=== PATIENT | female | born 1955 | race Caucasian/White ===

== ENCOUNTER → 2017-03-03 | Outpatient (CLI) | payer OTHER ==
[~2017-03-03] MED LIST: IBUP-103 PO
== END | disposition home or self-care (01) ==
LOC: C.PAPS 08:53
PROVIDERS: ATTEND Physician Assistant Medical
DX: Z12.4 Encounter for screening for malignant neoplasm of cervix (principal)

== ENCOUNTER 2022-01-11 07:43 | Observation (INO) ==
--- NOTE | 2022-01-07 10:07 | Anesthesiology Consultation ---
Date of Service January 07, 2022 Assessment & Plan (1) Encounter for pre-operative examination: Chart Review Chart Review: Acceptable Risk for Surgery (pending preop Covid testing results ) and Patient NOT seen in Pre Admission Testing Per nursing assessment 01/07/2022, patient denies any recent travel. No known COVID infection in the past 90 days. Patient is fully vaccinated for COVID. No known Covid positive exposures or Covid related symptoms. Preop Covid testing scheduled 01/08/22= will await results History Surgery Operation Date: 01/11/22 08:35 Proposed Procedures p Bilateral Simple Mastectomies and Right Axillary [place] Lymph Node Biopsy - Bob العراقي MD Height/Weight Height: 5 ft 4 in Weight: 66.224 kg Allergies Allergy/AdvReac Type Severity Reaction Status Date / Time bupropion [From Wellbutrin] Allergy Unknown Unknown Verified 01/07/22 09: iodine Allergy Unknown Unknown Verified 01/07/22 09:22 Medications Home Medications Medication Instructions Recorded Confirmed Last Taken calcium citrate 200 mg 1 tab PO QAM 03/20/19 01/07/22 Unknown calcium-vitamin D3 6.25 mcg (250 unit) tablet cholecalciferol (vitamin D3) 25 1,000 units PO QAM cap 03/20/19 01/07/22 Unknown mcg (1,000 unit) capsule diphenhydramine 25 1 tab PO HS tab 06/05/19 01/07/22 Unknown mg-acetaminophen 500 mg tablet fluticasone propionate 50 2 sprays INTRANASAL DAILY PRN gm 06/05/19 01/07/22 Unknown mcg/actuation nasal spray,suspension meloxicam 15 mg tablet 15 mg PO DAILY PRN 08/28/20 01/07/22 Unknown triamcinolone acetonide 0.1 % 1 applic TOPICAL QID PRN 08/28/20 01/07/22 Unknown topical cream loratadine 10 mg tablet (Claritin) 10 mg PO DAILY PRN 06/23/21 01/07/22 Unknown nicotine 21 mg/24 hr daily 1 patch TRANSDERMAL DAILY #14 ea 11/19/21 01/07/22 Unknown transdermal patch rosuvastatin 10 mg tablet 10 mg PO HS 01/07/22 01/07/22 Unknown Past Medical History Medical History (Updated 01/07/22 @ 10:07 by Janice Larose PA-C) Acquired deviated nasal septum Chronic maxillary sinusitis Has not had sinus infection for the last 5 yrs Hyperlipidemia Invasive lobular carcinoma of breast in female Right breast- multifocal, lobular carcinoma; left breast- abnormal focus- atypical ductal hyperplasia Plan surgical intervention (reason for procedure) Migraine headache Mitral valve prolapse syndrome No meds, followed by PCP No murmur noted on physical exam per heme/onc note 12/08/21 Past Family History Family History Father Hypertension Coronary heart disease Prostate cancer Myocardial infarction Stroke Brother Hypertension Denies family history of Ovarian cancer Diabetes Breast cancer Lung cancer Colorectal cancer Past Surgical History Surgical History H/O colonoscopy 01/2013 Hx of tubal ligation Social History Smoking Status: Current every day smoker tobacco type: cigarettes Smoking cigarettes per day: 3 cig a day Do You Dip or Chew Tobacco: No Smoking End Date: process of quitting and wears patch Hx Alcohol Use: Yes Alcohol type: hard liquor alcohol intake frequency: holidays/special occasions only Hx Substance Use: No substance use type: does not use Testing Laboratory Results 12/08/21= WBC: 6.57 H/H: 14.5/42.1 PLATELETS: 186 SODIUM: 139 POTASSIUM: 4.4 CHLORIDE: 101 CO2: 26 BUN: 15 CREATININE: 0.7 GLUCOSE: 101 Electrocardiogram Date: 06/23/21 Sinus rhythm at 73bpm. Possible left atrial enlargement (Faxed quality of EKG poor- will leave to anesthesiologist discretion DOS if repeat EKG needed)
[~2022-01-11 07:43] MED LIST changes: -IBUP-103 PO; +LR 15ML/HR IV SCH; +ceFAZolin 2000MG 2,000 MG/15 ML SYR IV SCH
[2022-01-11] MEDS ORDERED: MIDAZOLAM HCL 1 MG/ML 2ML VIAL ONE (08:01)
[2022-01-11] MEDS ORDERED: fentaNYL citrate 100 MCG/2 ML VIAL ONE ×4 (08:02→11:48)
[2022-01-11] MEDS ORDERED: ONDANSETRON INJ 2 MG/ML 2 ML VIAL ONE ×2 (08:02→12:50)
[2022-01-11] MEDS ORDERED: DEXAMETHASONE SOD INJ 4 MG/ML VIAL ONE ×2 (08:02→10:26)
[2022-01-11] MEDS ORDERED: PROPOFOL IV EMULSION 10 MG/ML 20 ML VIAL IV ONE (08:02)
[2022-01-11] MEDS ORDERED: LIDOCAINE 2% 2 ML VIAL/AMP(20MG/ML) INFIL ONE (08:03)
--- NOTE | 2022-01-11 08:47 | History & Physical Report ---
Date of Service January 11, 2022 Assessment & Plan (1) Invasive lobular carcinoma of breast in female: Plan: 66-year-old woman with right breast infiltrating lobular carcinoma and left breast atypical ductal hyperplasia. With a long discussion. She would like to proceed with bilateral mastectomy with right sentinel lymph node biopsy. All questions were answered. We will schedule at the earliest convenience. History of Present Illness Primary Care Provider: Axel Morales, 66-year-old woman with right-sided infiltrating lobular carcinoma of 2 sites as well as left breast atypical ductal hyperplasia. She is here for bilateral mastectomy with right sentinel lymph node biopsy. Allergies Allergy/AdvReac Type Severity Reaction Status Date / Time bupropion [From Wellbutrin] Allergy Unknown Unknown Verified 01/07/22 09:22 iodine Allergy Unknown Unknown Verified 01/07/22: Home Medications Medication Instructions Recorded Confirmed Type calcium citrate 200 mg 1 tab PO QAM 03/20/19 01/07/22 History calcium-vitamin D3 6.25 mcg (250 unit) tablet cholecalciferol (vitamin D3) 25 1,000 units PO QAM cap 03/20/19 01/07/22 History mcg (1,000 unit) capsule diphenhydramine 25 1 tab PO HS tab 06/05/19 01/07/22 History mg-acetaminophen 500 mg tablet fluticasone propionate 50 2 sprays INTRANASAL DAILY PRN gm 06/05/19 01/07/22 History mcg/actuation nasal spray,suspension meloxicam 15 mg tablet 15 mg PO DAILY PRN 08/28/20 01/07/22 History triamcinolone acetonide 0.1 % 1 applic TOPICAL QID PRN 08/28/20 01/07/22 History topical cream loratadine 10 mg tablet (Claritin) 10 mg PO DAILY PRN 06/23/21 01/07/22 History nicotine 21 mg/24 hr daily 1 patch TRANSDERMAL DAILY #14 ea 11/19/21 01/07/22 Rx transdermal patch rosuvastatin 10 mg tablet 10 mg PO HS 01/07/22 01/07/22 History Past Med/Surg History Medical History Acquired deviated nasal septum Chronic maxillary sinusitis Has not had sinus infection for the last 5 yrs Hyperlipidemia Invasive lobular carcinoma of breast in female Right breast- multifocal, lobular carcinoma; left breast- abnormal focus- atypical ductal hyperplasia Plan surgical intervention (reason for procedure) Migraine headache Mitral valve prolapse syndrome No meds, followed by PCP No murmur noted on physical exam per heme/onc note 12/08/21 Surgical History H/O colonoscopy 01/2013 Hx of tubal ligation Family History Father Hypertension Coronary heart disease Prostate cancer Myocardial infarction Stroke Brother Hypertension Denies family history of Ovarian cancer Diabetes Breast cancer Lung cancer Colorectal cancer Social History Smoking Status: Current every day smoker Cigarettes Per Day: 3 cig a day; Smoking End Date: process of quitting and wears patch; Second Hand Exposure: No; Do You Dip or Chew Tobacco: No; Tobacco Cessation Education Requested by Patient: No Hx Alcohol Use: Yes Alcohol type: hard liquor Alcohol Intake Frequency: 2-4 x/Month Hx Substance Use: No Preferred Language: Belgian Communication Ability: Effective Visual Impairment: Limited Hearing Ability: Normal Dental Hygiene Teacher Required: No Beliefs That Will Affect Care: None marital status: Current Living Situation: Spouse current occupational status: employed current occupation: Dispatcher How many Children do You have: 4 Other Information That Helps Us Care for You: No Feels Safe at Home: Yes Safety Concerns: Feels Safe At This Time Childhood Exposure to Second-Hand Smoke: Yes Dental Care, Regularly: Yes Physical Activity Frequency: 3-4 Times per Week Seatbelt Use: always Sunscreen Use: Yes Assistive Devices: Glasses Review of Systems Review of Systems: All systems reviewed & are unremarkable except as noted in HPI & below Physical Exam Constitutional: WD/WN, vitals as above Neck: trachea midline, no thyromegaly Respiratory: normal respiratory effort, lungs clear to auscultation Cardiovascular: RRR, no murmur, no edema Gastrointestinal (Abdomen): normal bowel sounds, soft, nontender, no hepatosplenomegaly Skin: no rashes, warm and dry Psychiatric: A+Ox3, euthymic affect
--- NOTE | 2022-01-11 09:17 | Nuclear Medicine Report ---
LYMPHOSCINTIGRAPHY CLINICAL HISTORY: Right breast cancer. PROCEDURE: Using standard sterile technique, 4 periareolar intradermal and one deep injection of 495 uCi of Lymphoseek was placed in the right breast. The patient tolerated the procedure well. There wer e no immediate complications. The patient was subsequently transported to the surgical suite. Imaging was performed at 15 minutes and 30 images. A right axillary node was marked for the surgeon. IMPRESSION: Injection of 495 uCi of Lymphoseek in the right breast with marking of a right axillary l ymph node. ACT 112: Negative or not required by law. Electronically signed by: Arslan Champagne M.D. 01/11/2022 9:15 AM
[2022-01-11] MEDS ORDERED: ISOSULFAN BLUE 10 MG/ML VIAL 5 ML ONE (09:27)
[2022-01-11] MEDS ORDERED: LIDOCAINE 1%/EPINEPHRINE 1:100,000 50 ML VIAL ONE (09:27)
[2022-01-11] MEDS ORDERED: ATROPINE SULFATE 0.1 MG/ML 10ML SYR IV PRN (09:33)
[2022-01-11] MEDS ORDERED: PROMETHAZINE HCL 6.25 MG in SODIUM CHLORIDE 0.9% 50 ML IV PRN (09:33)
[2022-01-11] MEDS ORDERED: ONDANSETRON INJ 2 MG/ML 2 ML VIAL IV PRN ×2 (09:33→14:36)
[2022-01-11] MEDS ORDERED: KETOROLAC 30 MG/ML VIAL IV PRN (09:33)
[2022-01-11] MEDS ORDERED: ACETAMINOPHEN 1000 MG/100 ML IV IV ONE (09:36)
[2022-01-11] MEDS ORDERED: ROCURONIUM BROMIDE 10 MG/ML 5 ML VIAL IV ONE (10:26)
[2022-01-11] MEDS ORDERED: KETAMINE 50 MG/5 ML SYRINGE ONE (10:52)
[2022-01-11] MEDS ORDERED: ARISTA ABSORBABLE HEMOSTAT 3GM TOP ONE ×2 (11:13)
[2022-01-11] MEDS ORDERED: NEOSTIGMINE METHYLSULFATE 1 MG/ML 10ML VIAL ONE (12:32)
[2022-01-11] MEDS ORDERED: GLYCOPYRROLATE 0.2 MG/ML VIAL ONE (12:32)
--- NOTE | 2022-01-11 12:51 | Post Operative Brief Note ---
Immediate Post Op Note v1 Date of Surgery January 11, 2022 Pre & Post Diagnosis Operation Date: 01/11/22 09:00 Pre-Op Diagnosis: Invasive Lobular Carcinoma Right Breast Post-Op Diagnosis: Invasive Lobular Carcinoma Right Breast I identified the patient and participated in the time-out.: Yes Procedure Operation Date: 01/11/22 09:00 Actual Procedures p Bilateral Simple Mastectomies and Right Axillary [place] Lymph Node Biopsy(Bilateral) - Bob العراقي MD Surgeon Bob العراقي MD Dry Ice Maker REFUGIO Cao assisted with tissue retraction, camera op, closure Estimated Blood Loss 20 Findings Consistent with Post-Op Diagnosis Drains Dane-Monsivais Drain (15 Round, 1 left breast, 1 right breast)
--- NOTE | 2022-01-11 12:57 | Operative Report ---
Post Operative Report Pre & Post Diagnosis Operation Date: 01/11/22 09:00 Pre-Op Diagnosis: Invasive Lobular Carcinoma Right Breast Post-Op Diagnosis: Invasive Lobular Carcinoma Right Breast I identified the patient and participated in the time-out.: Yes Procedure Operation Date: 01/11/22 09:00 Actual Procedures p Bilateral Simple Mastectomies and Right Axillary [place] Lymph Node Biopsy(Bilateral) - Bob العراقي MD Surgeon Bob العراقي MD Collections Analyst REFUGIO Cao assisted with tissue retraction, camera op, closure Estimated Blood Loss 20 Findings Consistent with Post-Op Diagnosis Specimens Left breast simple mastectomy Right breast simple mastectomy Right sentinel lymph node x1 count of 811 Drains Right chest wall 15 [place]ian ANIRUDH drain Right chest wall 15 [place] ANIRUDH drain Anesthesia Type General Complications No immediate complications Description of Procedure Patient was taken to the operating room, placed supine on the operating table. A timeout was performed, perioperative antibiotics were administered, SCD boots were placed. After adequate anesthesia and analgesia was obtained, the chest wall was prepped, from neck to abdominal wall and from table to table, and was draped in the usual fashion. Elliptical incisions were drawn on the left and right breasts to vignesh the incision site. 1% lidocaine with epinephrine was injected into and around the area of the incision in the interface between the breast tissue and the subcutaneous tissue on the chest wall. We began with the left breast. Incision was made with 15 blade scalpel was carried down to the level of the subcutaneous tissue. Flaps were raised, taking care to dissect the breast tissue off of the overlying subcutaneous tissue. The limits of the dissection were the clavicle superiorly, the sternum medially, the rectus sheath inferiorly, and the axillary fat pad laterally. The breast was then removed from the underlying pectoralis major muscle taking care to take the fascia of the pectoralis muscle with the specimen. Bleeders were controlled with electrocautery or clamped and tied with silk suture. The breast was oriented with sutures and ink and was sent off field for specimen. Excess breast tissue from the flaps were removed and sent with the specimen. Attention was turned to hemostasis, which was attended to and was excellent. The wound was copiously irrigated and suctioned free, and again hemostasis was checked and was excellent. Edwina powder was placed for hemostatic agent in the axilla. A 15 [place]ian round ANIRUDH drain was placed through separate stab incision and was secured with 3-0 nylon suture. The subcutaneous tissue was closed with 3-0 Vicryl, interrupted. The skin was closed with running 4-0 Monocryl subcuticular stitch. We then turned our attention to the right side. We began the axilla. The incision was made in the aforementioned vignesh, was carried to subcutaneous tissue. A flap was raised into the axilla. Using the neoprobe, I was able to identify the sentinel lymph node. This was dissected free circumferentially and removed. The count was 811. The background radiation of the axilla was less than 20. We then proceeded with the mastectomy. Flaps were raised, taking care to dissect the breast tissue off of the overlying subcutaneous tissue. The limits of the dissection were the clavicle superiorly, the sternum medially, the rectus sheath inferiorly, and the axillary fat pad laterally. The breast was then removed from the underlying pectoralis major muscle taking care to take the fascia of the pectoralis muscle with the specimen. Bleeders were controlled with electrocautery or clamped and tied with silk suture. The breast was oriented with sutures and ink and was sent off field for specimen. Excess breast tissue from the flaps were removed and sent with the specimen. Attention was turned to hemostasis, which was attended to and was excellent. The wound was copiously irrigated and suctioned free, and again hemostasis was checked and was excellent. Edwina powder was placed for hemostatic agent in the axilla. A 15 [place]ian round ANIRUDH drain was placed through separate stab incision and was secured with 3-0 nylon suture. The subcutaneous tissue was closed with 3-0 Vicryl, interrupted. The skin was closed with running 4-0 Monocryl subcuticular stitch. Benzoin and Steri-Strips were placed on both incisions. Dressings were applied. She tolerated the procedure without complication, transferred in stable condition to the PACU. All instrument, needle, and sponge counts were correct at the end of the case. My executive sales assistant was necessary throughout the procedure for tissue retraction, possible camera operation, and closure of the wounds. I understand that section 1842(b)(7)(D) of the Social Security act generally prohibits Medicare physician fee schedule payment for the services of assistants at surgery in teaching hospitals when qualified residents are available to furnish such services. I certify that the services for which payment is claimed were medically necessary and that no qualified resident was available to perform the services. I further understand that these services are subject to postpayment review by the Medicare carrier. I attest to the content of the Intraoperative Record and any orders documented therein. Any exceptions are noted below.
[2022-01-11] MEDS: fentaNYL citrate 100 MCG/2 ML VIAL IV PRN ×4 (13:14→13:29)
--- NOTE | 2022-01-11 13:45 | Anesthesiology Progress Note ---
Date of Service January 11, 2022 Anesthesia Post Procedure Vital Signs Vital Signs: Temp Pulse Resp BP Pulse Ox 01/11/22 13:35 99 H 16 138/62 97 01/11/22 13:25 85 16 141/68 H 96 01/11/22 13:15 94 H 16 141/73 H 97 01/11/22 13:06 36.0 C L 93 H 16 173/83 H 96 01/11/22 09:21 36.9 C 74 16 141/74 H 98 Transfer of Care Handoff Completed per policy Notes Mental Status: alert / awake / arousable Patient Amnestic to Procedure: Yes Nausea / Vomiting: adequately controlled Pain: adequately controlled Airway Patency, RR, SpO2: stable & adequate BP & HR: stable & adequate Hydration State: stable & adequate Anesthetic Complications: no major complications apparent
[2022-01-11] MEDS ORDERED: LACTATED RINGER'S 1,000 ML IV SCH (14:36)
[2022-01-11] MEDS ORDERED: PROMETHAZINE HCL 12.5 MG in SODIUM CHLORIDE 0.9% 50 ML IV PRN (14:36)
[2022-01-11] MEDS ORDERED: KETOROLAC TROMETHAMINE 15 MG/ML VIAL IV PRN (14:36)
[2022-01-11] MEDS ORDERED: MoRPHine SULFATE 2 MG/ML CARP IV PRN (14:36)
[2022-01-11] MEDS ORDERED: diphenhydrAMINE Capsule 25 MG CAP PO PRN (14:36)
[2022-01-11] MEDS: oxyCODONE/ACETAMINOPHEN 5mg/325mg TAB PO PRN ×2 (15:05→20:36)
[2022-01-11] MEDS ORDERED: ACETAMINOPHEN 325 MG TAB PO PRN (15:21)
[2022-01-12] MEDS: oxyCODONE/ACETAMINOPHEN 5mg/325mg TAB PO PRN (05:32)
[2022-01-12] MEDS ORDERED: ENOXAPARIN INJ 40 MG/0.4 ML SYR SQ SCH (07:00)
--- NOTE | 2022-01-12 09:28 | Discharge Summary ---
Date of Service January 12, 2022 Admission HPI Per Admitting Provider 66-year-old woman with right-sided infiltrating lobular carcinoma of 2 sites as well as left breast atypical ductal hyperplasia. Presented to [facility] for elective bilateral mastectomy with right sentinel lymph node biopsy. Principal Diagnosis Right Breast cancer invasive lobular carcinoma of 2 sites Left Breast atypical ductal hyperplasia Discharge Exam Constitutional WD/WN, vitals as above Respiratory normal respiratory effort; no respiratory distress Chest (Breasts) Additional Comments: Bilateral mastectomy incisions covered with clean/dry dressings Bilateral so drains with minimal bloody output in right drain, no output in left drain tender to palpation Skin no rashes, warm and dry Psychiatric A+Ox3, euthymic affect Discharge Data Allergies Allergy/AdvReac Type Severity Reaction Status Date / Time bupropion [From Wellbutrin] Allergy Unknown Unknown Verified 01/11/22 09:24 iodine Allergy Unknown Unknown Verified 01/11/22 09:24 Procedures Performed Operation Date: 01/11/ 09:00 Actual Procedures p Bilateral Simple Mastectomies and Right Axillary [place] Lymph Node Biopsy(Bilateral) - Bob العراقي MD Ordered Studies 01/11/22 05:00 US - OR guided needle placemen Routine Hospital Course (1) Invasive lobular carcinoma of breast in female: Patient was taken to operating room for bilateral mastectomy with right axillary sentinel lymph node biopsy by Dr. العراقي. Patient tolerated procedure well and was transferred to recovery then to medical surgical floor for postop pain management in observation status. Diet was advanced to regular diet, IV Morhpine and PO Percocet as needed for pain, so drains to bulb suction, SCDs and Lovenox for DVT prophylaxis, and activity as tolerated. POD # 1 , avss, postop pain controlled with oral perococet. Tolerated diet. Urinating without difficulty. Right so drian with minimal bloody output, left drain with no output. Patient was discharged home on POD # 1 in stable condition. Total Time Total Time Spent Total Time Spent (In Minutes): 30 Total Time Includes: Examination of the Patient, Discharge Planning and Medication Reconciliation Discharge Plan Discharge Items Patient Disposition: Home - Self-Care Reason For Visit: Lobular Carcinoma Right Breast Discharge Diagnosis: Lobular carcinoma Right breast, 2 sites Left breast atypical ductal hyperplasia Activity: Per Instructions section Non-emergency contact: Surgeon Call non-emergency contact if: you have any medication questions, your pain is not controlled, your pain is worsening, you have a fever, your temperature is above 101, your wound has increased redness, your wound has increased drainage and your wound pain has increased Follow-up/Referrals: Bob العراقي MD [Physician] - 01/27/22 1:00 pm Axel Morales DO [Primary Care Provider] - Diet: Regular Addtl Attending Provider Instructions: RESTRICTIONS: No heavy lifting over 20 pounds for 2 weeks No strenuous activity for 2 weeks or until cleared by surgeon Recommend daily range of motion exercises especially of the right arm to prevent limited range of motion of the right upper extremity/shoulder. MEDICATIONS: Resume previous medications unless instructed otherwise by your surgeon. * Percocet 5/325 mg one tablet every 4 hours as needed for pain. - Do Not exceed 3000 mg of Tylenol in 24 hours period if you take Tylenol with Percocet as Percocet has Tylenol in each pill (325 mg of Tylenol in each Percocet) * Tylenol 500 mg every 6 hours as needed for mild pain * Ibuprofen 600 mgm every 6 hours as needed for pain (take with food and limit continuous duration for no more than 3 days) SPECIAL CARE INSTRUCTIONS: * Wear bra day and night until seen in office. * May shower in 24 hours after dressings are removed. Keep drain sites dry if possible, sponge bath around drain sites. * Record drain output and color. Call the office for nurse visit for drain removal if <25 cc in 24 hours period for 3 consecutive days * Call the surgeon's office with any questions or concerns - (ex. temperature higher than 101 degrees F, excessive bleeding or pain). FOLLOW UP VISIT: If not already scheduled, please call the office for a follow-up appointment with nurse for drain removal. at . Pending Studies at Discharge: Yes (Breast pathology, will be reviewed at follow- up visit) Stand-Alone Forms: My [facility] [employer], Opioid Pain Management, Smoking Cessation Medications and DC Order Prescriptions: New oxycodone-acetaminophen [Percocet] 5-325 mg tablet 1 tab PO Q4H PRN (Reason: pain) Qty: 12 RF: 0 Continued nicotine 21 mg/24 hr patch 24 hour 1 patch transdermal DAILY Qty: 14 RF: 2 calcium citrate-vitamin D3 200 mg calcium -250 unit tablet 1 tab PO QAM RF: 0 cholecalciferol (vitamin D3) 1,000 unit capsule 1,000 units PO QAM RF: 0 diphenhydramine-acetaminophen 25-500 mg tablet 1 tab PO HS RF: 0 fluticasone propionate 50 mcg/actuation spray,suspension 2 sprays intranasal DAILY PRN (Reason: Allergy Symptoms) RF: 0 loratadine [Claritin] 10 mg tablet 10 mg PO DAILY PRN (Reason: prn) RF: 0 meloxicam 15 mg tablet 15 mg PO DAILY PRN (Reason: Pain) RF: 0 triamcinolone acetonide 0.1 % cream 1 applic topical QID PRN (Reason: Skin Irritation) RF: 0 rosuvastatin 10 mg tablet 10 mg PO HS RF: 0 Discharge Orders: Discharge Order (Routine); Ordered 01/12/22 Ordered By: Jannet Wright/Other Patient Handouts: DVT Post Op Prevention, Preventing Deep Vein Thrombosis Admission Data Admit Date/Time: 01/11/22 13:05 Attending Provider: Bob العراقي Admit Provider: Bob العراقي Primary Care Provider: Axel Morales Other Interventions: Discharge Summary Assessment (RN) Last Done: 01/12/22 10:25
[2022-01-12 09:41] LABS: Creatinine Clr Calc Pharmacy 89.5 ml/min; Est GFR (African American) 111.3 ml/min; Est GFR (Non-African American) 96.1 ml/min
== END 2022-01-12 13:13 | disposition home or self-care (01) ==
LOC: ASU 07:43 → 3W 07:43